=== PATIENT | female | born 1960 | race Caucasian/White ===

== ENCOUNTER → 2017-02-28 | Outpatient (CLI) | payer BC | END | disposition home or self-care (01) | LOC: MAMMO 16:40 | DX: Z12.31 Encounter for screening mammogram for malignant neoplasm of breast (principal) ==

== ENCOUNTER → 2017-03-14 | Outpatient (CLI) | payer BC | END | disposition home or self-care (01) | LOC: MAMMO 03-08 11:00 | DX: N63 Unspecified lump in breast (principal) ==

== ENCOUNTER → 2018-02-21 | Day surgery (SDC) | payer BC ==
[~2018-02-21] VITALS: Ht 170.1 cm; Wt 72.6 kg
[~2018-02-21] MED LIST: HYDR12.5C PO; LATANOPROST2.5 ML OP; LEVOTHYROXINE50 MCG PO; LIPITOR10 MG PO; LOSARTAN POTASS50 M1 PO; MULTIVITAMINS1 EAC5 PO; VITAMIN D-32000 UNI1 PO; WELLBUTRIN XL150 MG PO
--- NOTE | ~2018-02-21 | O ---
[place], [place] OPERATIVE NOTE NAME: ANDREW CHAO [facility] #: [id number] UNIT #: [id number] ROOM: DOCTOR: SHUBHAM SALINAS MD BIRTHDATE: [birth year] DOS: 02/21/2018 PREOPERATIVE DIAGNOSIS: Cataract, right eye. POSTOPERATIVE DIAGNOSIS: Cataract, right eye. OPERATION: Extracapsular cataract extraction by phacoemulsification with posterior chamber intraocular lens implantation, right eye. ANESTHESIA: Monitored standby. OPERATIVE FINDINGS AND PROCEDURE: 2% Xylocaine topical anesthetic gel was applied to the eye in the preop area. The patient was taken to the operating room and prepped and draped in the standard fashion for sterile intraocular surgery. A time out procedure was performed verifying correct patient, correct site and corrects lens with Girish Salinas M.D. The operating microscope was swung into position and the lid speculum was inserted. Using a Sisi paracentesis blade, a paracentesis was made through clear cornea. Viscoelastic was used to fill the anterior chamber. Using a metal keratome a 2.4 mm self-sealing clear corneal cataract incision was made temporally at the limbus. Using a pre-bent 25 gauge cystotome needle, a standard continuous curvilinear capsulorrhexis was performed. The anterior capsule was removed with forceps. The lens nucleus was hydrodissected and phacoemulsified in the posterior chamber. Cortical material was removed with the irrigation aspiration hand piece and the posterior capsule was then polished with a curet under irrigation. The posterior chamber and capsular bag were filled with viscoelastic. A posterior chamber intraocular lens manufactured by: [employer], Model #[id number], and 15.0 diopters in strength were then inserted into the posterior chamber and within the capsular bag using the lens cartridge and injector system. Viscoelastic was removed using the irrigation aspiration handpiece. The anterior chamber was filled with balanced salt solution through the paracentesis. Both the paracentesis site and cataract incisions were hydrated with BSS and verified to be water-tight and self-sealing. The incision checked to be water-tight using a Weck-Ileana sponge. The integrity of the cataract wound and ocular tension were checked. Lid speculum and drapes were removed. The patient was transferred from the operating room to the recovery room in satisfactory condition. [place], [place] OPERATIVE NOTE NAME: ANDREW CHAO UNIT #: [id number] ROOM: DOCTOR: SHUBHAM SALINAS MD BIRTHDATE: [birth year] SHUBHAM SALINAS MD CM:OPRECORD:OPERATIVE NOTE 1157 1211 SHUBHAM SALINAS MD 02/21/18 1209 interface
[2018-02-21 11:24] VITALS: BP 167/93
[2018-02-21 11:53] VITALS: BP 148/93
[2018-02-21 12:10] VITALS: BP 148/84
[2018-02-21 12:21] VITALS: BP 154/77
== END | disposition home or self-care (01) ==
LOC: SDC 01-22 13:15
DX: H25.811 Combined forms of age-related cataract, right eye (principal); I10 Essential (primary) hypertension; H40.9 Unspecified glaucoma; E07.9 Disorder of thyroid, unspecified; Z88.5 Allergy status to narcotic agent; Z88.0 Allergy status to penicillin; Z90.49 Acquired absence of other specified parts of digestive tract; Z98.51 Tubal ligation status; Z98.890 Other specified postprocedural states; Z79.899 Other long term (current) drug therapy; Z80.9 Family history of malignant neoplasm, unspecified

== ENCOUNTER → 2018-05-15 | Outpatient (CLI) | payer BC ==
[~2018-05-15] MED LIST changes: -LIPITOR10 MG PO; -MULTIVITAMINS1 EAC5 PO; -WELLBUTRIN XL150 MG PO
== END | disposition home or self-care (01) ==
LOC: MAMMO 16:54
DX: Z12.31 Encounter for screening mammogram for malignant neoplasm of breast (principal)

== ENCOUNTER → 2018-06-05 | Outpatient (CLI) | payer BC ==
[~2018-06-05] MED LIST changes: +LIPITOR10 MG PO; +MULTIVITAMINS1 EAC5 PO; +WELLBUTRIN XL150 MG PO
== END | disposition home or self-care (01) ==
LOC: MAMMO 13:00
DX: N63.24 Unspecified lump in the left breast, lower inner quadrant (principal)

== ENCOUNTER → 2020-11-08 | Outpatient (CLI) | payer BC | END | disposition home or self-care (01) | LOC: RAD 10:08 | PROVIDERS: ATTEND Orthopaedic Surgery | DX: M17.0 Bilateral primary osteoarthritis of knee (principal) ==

== ENCOUNTER → 2021-04-01 | Outpatient (CLI) | payer BC | END | disposition home or self-care (01) | LOC: MAMMO 08:47 | PROVIDERS: ATTEND Nurse Practitioner Primary Care | DX: R92.8 Other abnormal and inconclusive findings on diagnostic imaging of breast (principal) ==

== ENCOUNTER → 2022-03-21 | Outpatient (CLI) | payer BC | END | disposition home or self-care (01) | LOC: MAMMO 10:47 | PROVIDERS: ATTEND Family Medicine | DX: Z12.31 Encounter for screening mammogram for malignant neoplasm of breast (principal) ==

== ENCOUNTER → 2025-01-10 | Outpatient (CLI) | payer OTHER ==
[2025-01-10 11:09] LABS: BASO # 0.1 10*3/uL (0.0-0.1); BASO % 0.8 % (0.0-1.0); EOS # 0.3 10*3/uL (0.0-0.4); EOS % 3.4 % (1.0-4.0); MEAN CELL VOLUME 94.4 fl (81.0-99.0); MEAN CORPUSCULAR HGB 30.4 pg (27.0-31.0); MEAN PLATELET VOLUME 9.0 fl (9.6-12.3); MONO # 0.6 10*3/uL (0.1-1.0); MONO % 7.4 % (3.0-9.0); NEUT # 2.8 10*3/uL (2.3-7.9); NEUT % 36.1 % (47.0-73.0); NUCLEATED RED BLOOD CELL 0.0 % (0.0-0.0); NUCLEATED RED BLOOD CELL 0.0 10*3/uL (0.0-0.0); PLATELET COUNT AUTOMATED 278 10*3/uL (130-400); RED CELL DISTRI WIDTH 14.3 % (0-14.5)
[2025-01-10 11:34] LABS: BUN 13 mg/dl (9-23); LDL CHOLESTEROL 103 mg/dL (9-159); SGPT/ALT 35 U/L (5-49)
== END ==
LOC: LAB 10:45
PROVIDERS: ATTEND Nurse Practitioner Primary Care
DX: I10 Essential (primary) hypertension (principal); E03.9 Hypothyroidism, unspecified; E78.00 Pure hypercholesterolemia, unspecified

== ENCOUNTER → 2025-01-22 | Outpatient (CLI) | payer OTHER | END | disposition home or self-care (01) | LOC: MAMMO 03:21 | PROVIDERS: ATTEND Nurse Practitioner Primary Care | DX: Z12.31 Encounter for screening mammogram for malignant neoplasm of breast (principal); R92.313 Mammographic fatty tissue density, bilateral breasts ==